=== PATIENT | female | born 1960 | race African-American/Black ===

== ENCOUNTER 2023-09-23 18:15 | Emergency (ER) | payer OTHER, SELFPAY ==
[2023-09-23 18:25] VITALS: BP 131/102
[2023-09-23 19:31] LABS: % Basophils 0.3 % (0-2); % Eosinophils 0.9 % (0-6); % Immature Granulocytes 0.3 % (0-0.5); % Lymphocytes 23.5 % (20.5-51.1); % Monocytes 4.3 % (1.7-9.3); % Neutrophils 70.7 % (42.2-75.2); Absolute Eosinophils 0.1 10^3/uL (0-0.7); Absolute Immature Granulocytes 0.1 10^3/uL (0-0.05); Absolute Lymphocytes 3.8 10^3/uL (1.2-3.4); Absolute Monocytes 0.7 10^3/uL (0.1-0.6); Absolute Neutrophils 11.3 10^3/uL (1.4-6.5); Hematocrit 39.4 % (37.0-47.0); Mean Corpuscular Hgb 28.4 pg (27.0-31.0); Mean Platelet Volume 8.9 fL (7.4-10.4); Nucleated Red Blood Cells % 0 %; Platelet Count 343 10^3/uL (130-400); Red Blood Cell Count 4.58 10^6/uL (4.20-5.40); Red Cell Dist. Width 14.8 % (11.5-14.5)
[2023-09-23 19:48] LABS: ALT (SGPT) 17 U/L (0-35); AST (SGOT) 21 U/L (14-36); Albumin 3.9 g/dl (3.5-5.0); Alkaline Phosphatase 99 U/L (38-126); Blood Urea Nitrogen 18 mg/dl (7-17); Carbon Dioxide 28 mmol/L (22-30); Chloride 106 mmol/L (98-107); Glucose 103 mg/dl (70-99); Potassium 4.2 mmol/L (3.5-5.1); Sodium 138 mmol/L (135-145); Total Bilirubin 0.4 mg/dl (0.2-1.3); Total Protein 6.8 g/dl (6.3-8.2); eGFR > 60.00
[2023-09-23 19:57] VITALS: BMI 32.4
--- NOTE | 2023-09-23 20:30 | ED.GENMED ---
History of Present Illness
General
Chief Complaint: Vaginal Bleeding
Source: patient
Exam Limitations: none
Time Seen by Provider: 09/23/23 19:37
Travel History
Have you had any contact with someone who has COVID-19?: No
Do you have any symptoms of coronavirus? Fever > 100 degrees, chills, cough, shortness of breath, sore throat, loss of taste or smell, muscle aches, or headache?: No
History of Present Illness
History of Present Illness:
This is a 62 year old female that comes in with c/o vaginal bleeding. States that she stopped her menses in 2012. States that on Wednesday she started with vaginal bleeding. States that she has had some abd cramping and nausea. Denies any fever,
chills, chest pain, SOB, vomiting, diarrhea, headache, dizziness, urinary burning.
Past History
Past History
ED Past Medical History: Asthma (Seasonal), Fibromyalgia, HTN and Other (History of kidney infections many times in her life, UTi, )
ED Past Surgical History: Appendectomy, Cholecystectomy, (x 2), Orthopedic (Surgery of both knees) and Other (Breast reduction)
Social History
Tobacco: Smoker
Alcohol: None
Personal:
Living: with family
Employment: Employed
Family History
Family History: CAD and Other (n/c)
Review of Systems
Review of Systems
All Other Systems: ROS reviewed and negative except as documented in HPI and ROS
Constitutional: Reports no symptoms; Denies fever or chills
EENT: Reports no symptoms
Respiratory: Reports no symptoms; Denies cough or trouble breathing
Cardiac: Reports no symptoms; Denies chest pain
ABD/GI: Reports abdominal pain and nausea; Denies vomiting or diarrhea
: Reports no symptoms; Denies dysuria, frequency or urgency
Musculoskeletal: Reports no symptoms
Skin: Reports no symptoms
Neurological: Reports no symptoms; Denies dizzy or headache
Psychiatric: Reports no symptoms
Phy Exam
General Physical Exam
General Presentation: well appearing and no apparent distress
General age: appears stated age
General Skin: warm and dry
General Habitus: normal
General Mental: alert
General Hydration: appears well hydrated
ENT Exam
ENT Exam: TM's normal, pharynx normal and neck supple
Eye Exam
Eye Exam: EOMI
Cardiovascular Exam
Cardiovascular Exam: regular rate/rhythm, no edema, no murmur and normal peripheral pulses
Pulmonary Exam
Pulmonary Exam: lungs clear, no respiratory distress, no rales, chest non tender, no crackles, no rhonchi, no wheezing and no cough
Gastrointestinal Exam
Gastrointestinal Exam: normal bowel sounds, soft, no organomegaly, no pulsatile mass, non distended and tender (Lower abd tenderenss and right sided tenderness with palpation)
Genitourinary Exam Female
Vaginal Bleeding: none (at this time. )
Musculoskeletal Exam
Musculoskeletal Exam: full ROM and no edema
Skin Exam
Skin Exam: normal color, warm/dry, no rash and no petechia
Psychiatric Exam
Psychiatric Exam: normal mood/affect
Course
Orders/Labs/Results
Orders:
Orders
09/23/23 19:22
Type+Screen Urgent
Complete Blood Count/With Diff Urgent
Comprehensive Metabolic Panel Urgent
09/23/23 20:29
0.9% Sodium Chloride 1000 ml [Nss] 1,000 ml IV BOLUS
US Pelvis W Transvag Combined Urgent
Reason For Exam: Post menopausal bleeding
09/23/23 20:46
CT Abd/pel (oral only)-DH Only Urgent
Comment:
Reason For Exam: Lower abd pain and right sided pain
Iohexol [Omnipaque] See Protocol PO NOW STA
09/23/23 22:57
Urinalysis Reflex To Culture Urgent
Date Specimen was Collected: 06/13/24
Time Specimen was Collected: 19:49
Urine Microscopic Reflex Cult Urgent
Urine Culture Urgent
ARNEL Source: U
Specimen Description:
Date Specimen was Collected: 09/23/23
Time Specimen was Collected: 19:49
09/23/23 23:32
CefTRIAXone [Rocephin] 1,000 mg IV NOW STA
Abnormal Lab Results
09/23/23 09/23/23
19:22 22:57
WBC 16.0 H 10^3/uL
(4.8-10.8)
RDW 14.8 H %
(11.5-14.5)
Abs Immat Gran (auto) 0.1 H 10^3/uL
(0-0.05)
Absolute Neuts (auto) 11.3 H 10^3/uL
(1.4-6.5)
Absolute Lymphs (auto) 3.8 H 10^3/uL
(1.2-3.4)
Absolute Monos (auto) 0.7 H 10^3/uL
(0.1-0.6)
BUN 18 H mg/dl
(7-17)
Glucose 103 H mg/dl
(70-99)
Ur Occult Blood Reflex 4+ A
(Negative)
Urine Nitrite (Reflex) Positive A
(Negative)
Leukocyte Esterase Rfl 2+ A
(Negative)
Urine RBC >100 A /HPF
(0-2)
Urine WBC (Reflex) 30-40 A /HPF
(0-5)
Urine Bacteria (Reflex) Moderate A
(Negative)
Urine Albumin (Reflex) 1+ A
(Neg - Trace)
09/23/23 19:22
09/23/23 19:22
Leukocytosis, very slight Dehydration. Glucose nonfasting, Urine positive for infection.
Vital Signs
Initial and Last Documented VS:
Initial Vital Signs
Temp Pulse Resp BP Pulse Ox
98.8 F 99 18 131/102 99
09/23/23 18:25 09/23/23 18:25 09/23/23 18:25 09/23/23 18:25 09/23/23 18:25
Last Documented Vital Signs
Temp Pulse Resp BP Pulse Ox
98.8 F 99 18 146/74 99
09/23/23 18:25 09/23/23 18:25 09/23/23 18:25 09/23/23 23:51 09/23/23 23:53
MDM/Problems Addressed
Differential Diagnosis Includes:
abnormal vaginal bleeding, Fibroids
MDM/Problems Addressed:
This is a 62 year old female that comes in with c/o vaginal bleeding that started on Wednesday. States that she is post menopausal and her last period was in 2012. States that she has had 2 COVID vaccines.
will get labs, US and CT, Will give IV fluids
Back into see patient and reviewed CT and US. Explained that her WBC are elevated and that she does have a UTI. will treat for the UTI. Explained that she has Endometrial thickening and uterine fibroids. Patient will need to follow up with her
[facility] for further evaluation. Explained that she may need a Biopsy. Patient will also be given a Prescription for the UTI. Patient to return with any concerns.
Chronic conditions affecting care:
NA
Acute Exacerbation and/or Progression of Chronic Illness:
NA
*Radiology
Radiology exam reviewed: radiology read reviewed (US-The endometrium measures up to 7mm in thickness, which is considered mildly thickened for a symptomatic postmenopausal patient. Differential consideration would include endometrial hyperplasia or
endometrial carcinoma. Fibroid uterus. CT- night hawk-Probable uterine fibroids. Pelvic US is ), all reviewed NAD by ED Provider (CT cont- recommended for further assessment for the etiology of the patient's reported vaginal bleeding and cramping.
Mild mural thickening of the bladder, which may represent Cystitis. Correlation with UA is recommended. No evidence of bowel obstruction. Additional findings: Punctate right renal) and other (CT cont- calculus. Right renal cyst. Postcholecystectomy.
DJD. Vascular calcifications. Colonic diverticulosis. Presumd post appendectomy surgical clips. )
*Pulse Oximetry
Patient hypoxic: no
*EKG
Interpreted by ED Provider?: NA
Rate: EKG- N/A
*Former Hand Interpretation
Rate: Former Hand- N/A
*Critical Care Note
Total Time (30-74mins, 75-104mins- exclusive of procedures): Not Applicable
ED Attending Note
-
Portions of this chart may have been created with voice recognition software.� Occasional wrong word or��sound alike� substitutions may have occurred due to the inherent limitations of voice recognition software.
Discharge Plan
Departure
Patient Disposition: Home (Routine Discharge)
Date of Disposition: 09/24/23
Time of Disposition: 00:11
Patient with high blood pressure during this ER visit?: Yes
Condition: Good
Covid-19: Not Applicable
Discharge Problem:
UTI (urinary tract infection), Uterine fibroid, Thickened endometrium
Instructions: Uterine Fibroids (DC), Urinary Tract Infection, Adult ED, BLOOD PRESSURE
Prescriptions:
New
cefdinir 300 mg capsule
300 mg PO BID Qty: 14 0RF
No Action
ascorbic acid (vitamin C) [Vitamin C] 500 MG tablet
1,000 mg PO DAILY
duloxetine 60 MG capsule,delayed release(DR/EC)
60 mg PO DAILY
cholecalciferol (vitamin D3) 1,000 UNITS tablet
2,000 units PO DAILY
Cranberry
3 tab PO DAILY
Patient Comments:
650 mg
fexofenadine [Huong] 180 MG tablet
180 mg PO DAILY
amlodipine-benazepril 1 EACH capsule
1 ea PO DAILY
wzijcvhp-gqs-zjak-FA-vit K-lut [Multivitamin Women 50 Plus] 1 EACH tablet
1 ea PO DAILY
biotin 5,000 MCG tablet, sublingual
5,000 mcg sublingual DAILY
cephalexin 500 MG capsule
500 mg PO BID Qty: 6 0RF
pantoprazole 40 MG tablet,delayed release (DR/EC)
40 mg PO DAILY Qty: 30 0RF
Referrals:
Shar Moore DO [Family Provider] -
Activity Restrictions/Additional Instructions:
As discussed, your blood work shows that your WBC are elevated. Please increase your water intake to 8-8oz glasses daily. You also have a urinary tract infection. You have been given your first dose of an antibiotic here and a prescription has been
sent to your pharmacy for you to start tomorrow. Your US and CT scan shows that you have Uterine Fibroids and that the endometrial lining is thickened. You will need to see the [facility] for further evaluation and possible Biopsy. IF YOU HAVE FEVER,
INCREASED OR CHANGING PAIN, OR YOU HAVE ANY OTHER CONCERNS PLEASE RETURN TO THE EMERGENCY ROOM.
Interventions
Interventions:
*Risk Screen - Suicide Last Done: 09/23/23 19:57
*General Assessment Last Done: 09/23/23 18:25
*Neglect/Abuse Screening Last Done: 09/23/23 19:57
ED- Fall Risk Assessment Last Done: 09/23/23 19:57
*ED COVID-19 Vaccine History Last Done: 09/23/23 19:57
ED-Female Genitourinary Assessment Last Done: 09/23/23 19:57
Discharge Date and Time
Print Language: DANISH
[2023-09-23] MEDS: NSS 1000 IV (20:42)
[2023-09-23] MEDS: OMNIPAQUE 50 ML PO (21:17)
[2023-09-23 23:04] LABS: Urine Albumin 1+ (Neg - Trace); Urine Bilirubin Negative (Negative); Urine Character Very Cloudy (Clear); Urine Color Yellow; Urine Glucose Negative (Negative); Urine Ketone Negative (Negative); Urine Leukocyte 2+ (Negative); Urine Nitrite Positive (Negative); Urine Occult Blood 4+ (Negative); Urine Specific Gravity 1.005 (<1.030); Urine Urobilinogen Negative (Neg - 1+)
[2023-09-23 23:20] LABS: Urine Red Blood Cell >100 /HPF (0-2)
[2023-09-23 23:21] LABS: Urine Bacteria Moderate (Negative); Urine Squamous Cell 26-30 /LPF (Few); Urine White Cell 30-40 /HPF (0-5)
[2023-09-23] MEDS: ROCEPHIN 1000 MG IV (23:50)
[2023-09-23 23:51] VITALS: BP 146/74
[2023-09-24] VITALS: BP 165/104
== END 2023-09-24 00:28 | disposition home or self-care (01) ==
LOC: EMR 18:15
PROVIDERS: Clinical Nurse Specialist Family Health; EMERGENCY PHYSICIAN Emergency Medicine; FAMILY PHYSICIAN Family Medicine
DX: N39.0 Urinary tract infection, site not specified (principal); D25.9 Leiomyoma of uterus, unspecified; R93.89 Abnormal findings on diagnostic imaging of other specified body structures; J45.909 Unspecified asthma, uncomplicated; M79.7 Fibromyalgia; I10 Essential (primary) hypertension
CPT/HCPCS: 99284; 96374; 96361; 74176; 76830; 76856; 80053; 81003; 81015; 85025; 86850; 86900; 86901; 87077; 87086; 87088; 87186

== ENCOUNTER → 2024-07-19 14:32 | Outpatient (REF) | payer OTHER, SELFPAY | LOC: HWRAD 14:32 | PROVIDERS: ATTENDING PHYSICIAN Family Medicine | DX: M79.645 Pain in left finger(s) (principal) | CPT/HCPCS: 73130 ==

== ENCOUNTER → 2024-07-25 09:42 | Outpatient (REF) | payer OTHER, SELFPAY | LOC: HWRAD 09:42 | PROVIDERS: ATTENDING PHYSICIAN Family Medicine | DX: M25.512 Pain in left shoulder (principal) | CPT/HCPCS: 73030 ==